=== PATIENT | male | born 1985 | race Caucasian/White ===

== ENCOUNTER 2018-01-15 07:46 | Emergency (ER) | payer BC ==
[2018-01-15 08:17] LABS: ABS Basophils 0 10^3/ul (0-0.2); ABS Eosinophils 0.1 10^3/ul (0-0.6); ABS Lymphocytes 1.4 10^3/ul (1.0-4.8); ABS Monocytes 0.3 10^3/ul (0-0.8); ABS Neutrophils 2.2 10^3/ul (1.5-7.7); ABS Nucleated RBC 0 10^3/ul; Eosinophil % 2.2 % (0-6); Hematocrit 40 % (42-52); Lymphocyte % 34.9 % (25-47); Mean Corpuscular HGB Conc 35 g/dl (31-36); Mean Corpuscular Hemoglobin 33 pg (27-31); Mean Corpuscular Volume 94 fL (80-94); Mean Platelet Volume 8.4 um3 (7.4-10.4); Nucleated Red Blood Cells % 0; Platelet Count 269 10^3/ul (150-450); Red Blood Count 4.26 10^6/ul (4.00-5.40); Red Cell Distribution Width 13 % (10.5-15); White Blood Count 3.9 10^3/ul (3.5-10.8)
[2018-01-15 08:42] LABS: EGFR Non-African American 83.9 (>60)
--- NOTE | 2018-01-15 08:52 | RAD ---
INDICATION: Chest pain COMPARISON: None TECHNIQUE: An AP portable view obtained at 0835 hours is submitted. FINDINGS: Bones/Soft Tissues: There are no acute bony findings. Cardiomediastinal: The heart is normal in size. There is a prominent right sided cardiac mogul which may represent a prominent arch. Lungs: There are no infiltrates. Pleura: There are no pleural effusions. Other: None IMPRESSION: MILDLY PROMINENT RIGHT CARDIAC MOGUL MAY REPRESENT A PROMINENT ARCH. SUGGEST NONCONTRAST CT IMAGING THE CHEST.
--- NOTE | 2018-01-15 09:19 | RAD ---
INDICATION: Evaluate ascending aorta COMPARISON: CT chest same date TECHNIQUE: Noncontrast axial source images were obtained from the thoracic inlet to the hemidiaphragms. Coronal and sagittal reconstructed images were acquired. The visualized neck to include the thyroid appear normal. Chest wall: There are no acute abnormalities of the bony thorax or chest wall. There is no supraclavicular, infraclavicular, or axillary lymphadenopathy. Lungs : There are no pulmonary parenchymal masses or infiltrates. The pulmonary interstitium appears normal. There are no endobronchial lesions. Cardiomediastinal structures: The heart is normal in size. There is no pericardial effusion. There is no evidence of aortic aneurysm or dissection. The aortic root measures approximately 2.7 cm, the ascending thoracic aorta 2.4 cm and the descending thoracic aorta approximately 1.7 cm. The pulmonary vessels appear normal. There is no mediastinal or hilar adenopathy. The esophagus appears normal. Pleura : There are no pleural-based masses or effusions. Other: There are no acute or significant CT findings of the visualized upper abdomen. IMPRESSION: THERE IS MINOR PROMINENCE OF THE AORTIC ROOT AND ASCENDING THORACIC AORTA RELATIVE TO THE DESCENDING THORACIC AORTA.. THERE IS NO FOCAL ANEURYSM. LUNGS CLEAR.
[2018-01-15 13:11] VITALS: BP 122/78
--- NOTE | 2018-01-15 15:14 | ED ---
Leobardo Lindsey Angela, scribed for Soto Trinidad MD on 01/15/18 at 0802 . HPI Chest Pain - HPI Summary HPI Summary: This pt is a 32 y/o male presenting to [facility] via EMS c/o chest pain since approximately 06:20 this morning. Pt reports this morning he was at work doing his normal morning routine when suddenly he had palpitations, characterized as rapid heart rate. He additionally states he felt fatigued, SOB, and chest pain. Pt describes chest pain as mid sternal tightness radiating to his left arm. EMS administers 324 mg aspirin and nitroglycerin x1. Currently he states he has mild mid sternal chest discomfort. Denies recent travel. No PMHx. Pt denies tobacco, alcohol, drug use. Family hx includes heart disease in father and in paternal and maternal grandfathers. Pt's paternal grandfather had VT. Pt's father follows up with Dr. Estes for extensive cardiac family hx. - History of Current Complaint Hx Obtained From: Patient Onset/Duration: Started Hours Ago, Still Present Timing: Lasting Hours Initial Severity: Moderate Current Severity: Mild Pain Intensity: 1 Pain Scale Used: 0-10 Numeric Chest Pain Location: Mid Sternal Chest Pain Radiates: Yes Chest Pain Radiates To:: Arm - left Character: Tightness Aggravating Factor(s): Nothing Alleviating Factor(s): NTG 123, EMS Tx Associated Signs and Symptoms: Positive: Chest Pain, Shortness of Breath, Palpitations, Other: - POS: fatigue. Negative: Fever, Chills - Allergy/Home Medications Allergies/Adverse Reactions: Allergies Allergy/AdvReac Type Severity Reaction Status Date / Time No Known Allergies Allergy Verified 01/15/18 07:58 Home Medications: Home Medications Ibuprofen TAB* [Motrin TAB* 400 MG] 400 mg PO Q6H PRN 01/15/18 [History Confirmed 01/15/18] PMH/Surg Hx/FS Hx/Imm Hx Endocrine/Hematology History: Denies: Hx Diabetes Cardiovascular History: Denies: Hx Hypertension Infectious Disease History: Denies: Traveled Outside the [place] in Last 30 Days - Family History Known Family History: Positive: Cardiac Disease - father has dyslipidemia. Paternal grandfather: heart disease at 32 - Social History Alcohol Use: Weekly Substance Use Type: Reports: None Smoking Status (MU): Never Smoked Tobacco Review of Systems Positive: Fatigue. Negative: Fever Positive: Palpitations, Chest Pain Positive: Shortness Of Breath Genitourinary: Negative Musculoskeletal: Negative Skin: Negative Neurological: Negative All Other Systems Reviewed And Are Negative: Yes Physical Exam - Summary Physical Exam Summary: Appearance: The patient is well-nourished in no acute distress and in no acute pain. Skin: The skin is warm and dry and skin color reflects adequate perfusion. HEENT: The head is normocephalic and atraumatic. The pupils are equal and reactive. The conjunctivae are clear and without drainage. Nares are patent and without drainage. Mouth reveals moist mucous membranes and the throat is without erythema and exudate. The external ears are intact. The ear canals are patent and without drainage. The tympanic membranes are intact. Neck: the neck is supple with full range of motion and non-tender. There are no carotid bruits. There is no neck vein distension. Respiratory: Chest is non-tender. Lungs are clear to auscultation and breath sounds are symmetrical and equal. Cardiovascular: Heart is regular rate and rhythm. There is no murmur or rub auscultated. There is no peripheral edema and pulses are symmetrical and equal. Abdomen: The abdomen is soft and non-tender. There are normal bowel sounds heard in all four quadrants and there is no organomegaly palpated. Musculoskeletal: There is no back tenderness noted. Extremities are non-tender with full range of motion. There is good capillary refill. There is no peripheral edema or calf tenderness elicited. Neurological: Patient is alert and oriented to person, place and time. The patient has symmetrical motor strength in all four extremities. Cranial nerves are grossly intact. Deep tendon reflexes are symmetrical and equal in all four extremities. Psychiatric: The patient has an appropriate affect and does not exhibit any anxiety or depression. Triage Information Reviewed: Yes Vital Signs On Initial Exam: Initial Vitals Temp Pulse Resp BP Pulse Ox 98.7 F 91 21 134/77 99 01/15/18 07:49 01/15/18 07:49 01/15/18 07:49 01/15/18 07:49 01/15/18 07:49 Vital Signs Reviewed: Yes Diagnostics - Vital Signs Vital Signs Temp Pulse Resp BP Pulse Ox 01/15/18 13:11 99.2 F 71 20 122/78 98 01/15/18 13:00 73 15 97 01/15/18 12:57 78 15 122/78 99 01/15/18 12:28 85 22 110/72 100 01/15/18 12:00 76 16 99 01/15/18 11:58 82 20 112/74 99 01/15/18 11:17 62 12 115/75 99 01/15/18 11:00 72 17 97 01/15/18 10:00 80 20 99 01/15/18 09:04 70 17 99 01/15/18 08:02 89 18 114/82 99 01/15/18 08:00 89 17 99 01/15/18 07:53 85 15 99 01/15/18 07:49 98.7 F 91 21 134/77 99 01/15/18 07:02 82 18 114/82 99 - Laboratory Lab Results: Lab Results 01/15/18 01/15/18 01/15/18 Range/Units 08:02 08:02 08:02 WBC 3.9 (3.5-10.8) 10^3/ul RBC 4.26 (4.00-5.40) 10^6/ul Hgb 14.0 (14.0-18.0) g/dl Hct 40 L (42-52) % MCV 94 (80-94) fL MCH 33 H (27-31) pg MCHC 35 (31-36) g/dl RDW 13 (10.5-15) % Plt Count 269 (150-450) 10^3/ul MPV 8.4 (7.4-10.4) um3 Neut % (Auto) 55.7 (38-83) % Lymph % (Auto) 34.9 (25-47) % [place] % (Auto) 6.5 (0-7) % Eos % (Auto) 2.2 (0-6) % Baso % (Auto) 0.7 (0-2) % Absolute Neuts (auto) 2.2 (1.5-7.7) 10^3/ul Absolute Lymphs (auto) 1.4 (1.0-4.8) 10^3/ul Absolute Monos (auto) 0.3 (0-0.8) 10^3/ul Absolute Eos (auto) 0.1 (0-0.6) 10^3/ul Absolute Basos (auto) 0 (0-0.2) 10^3/ul Absolute Nucleated RBC 0 10^3/ul Nucleated RBC % 0 D-Dimer, Quantitative (Less Than 230) ng/mL Sodium 138 (135-145) mmol/L Potassium 3.9 (3.5-5.0) mmol/L Chloride 105 (101-111) mmol/L Carbon Dioxide 26 (22-32) mmol/L Anion Gap 7 (2-11) mmol/L BUN 11 (6-24) mg/dL Creatinine 1.04 (0.67-1.17) mg/dL Est GFR ( Amer) 107.8 (>60) Est GFR (Non-Af Amer) 83.9 (>60) BUN/Creatinine Ratio 10.6 (8-20) Glucose 103 H (70-100) mg/dL Lactic Acid 2.0 (0.5-2.0) mmol/L Calcium 9.3 (8.6-10.3) mg/dL Total Bilirubin 0.50 (0.2-1.0) mg/dL AST 16 (13-39) U/L ALT 16 (7-52) U/L Alkaline Phosphatase 63 (34-104) U/L Troponin I 0.00 (<0.04) ng/mL Total Protein 6.7 (6.4-8.9) g/dL Albumin 4.2 (3.2-5.2) g/dL Globulin 2.5 (2-4) g/dL Albumin/Globulin Ratio 1.7 (1-3) 18 01/15/18 Range/Units 08:02 10:54 WBC (3.5-10.8) 10^3/ul RBC (4.00-5.40) 10^6/ul Hgb (14.0-18.0) g/dl Hct (42-52) % MCV (80-94) fL MCH (27-31) pg MCHC (31-36) g/dl RDW (10.5-15) % Plt Count (150-450) 10^3/ul MPV (7.4-10.4) um3 Neut % (Auto) (38-83) % Lymph % (Auto) (25-47) % [place] % (Auto) (0-7) % Eos % (Auto) (0-6) % Baso % (Auto) (0-2) % Absolute Neuts (auto) (1.5-7.7) 10^3/ul Absolute Lymphs (auto) (1.0-4.8) 10^3/ul Absolute Monos (auto) (0-0.8) 10^3/ul Absolute Eos (auto) (0-0.6) 10^3/ul Absolute Basos (auto) (0-0.2) 10^3/ul Absolute Nucleated RBC 10^3/ul Nucleated RBC % D-Dimer, Quantitative < 200 (Less Than 230) ng/mL Sodium (135-145) mmol/L Potassium (3.5-5.0) mmol/L Chloride (101-111) mmol/L Carbon Dioxide (22-32) mmol/L Anion Gap (2-11) mmol/L BUN (6-24) mg/dL Creatinine (0.67-1.17) mg/dL Est GFR ( Amer) (>60) Est GFR (Non-Af Amer) (>60) BUN/Creatinine Ratio (8-20) Glucose (70-100) mg/dL Lactic Acid (0.5-2.0) mmol/L Calcium (8.6-10.3) mg/dL Total Bilirubin (0.2-1.0) mg/dL AST (13-39) U/L ALT (7-52) U/L Alkaline Phosphatase (34-104) U/L Troponin I 0.00 (<0.04) ng/mL Total Protein (6.4-8.9) g/dL Albumin (3.2-5.2) g/dL Globulin (2-4) g/dL Albumin/Globulin Ratio (1-3) Result Diagrams: 01/15/18 08:02 01/15/18 08:02 Lab Statement: Any lab studies that have been ordered have been reviewed, and results considered in the medical decision making process. - Radiology Chest XR Xray Interpretation: Positive (See Comments) - IMPRESSION: Mildly prominent right cardiac mogul may represent a prominent arch. Suggest noncontrast CT imaging the chest. Dr. Trinidad has reviewed this radiology report. Radiology Interpretation Completed By: Radiologist - CT Chest CT CT Interpretation: Positive (See Comments) - IMPRESSION: There is minor prominence of the aortic root and ascending thoracic aorta relative to the descending thoracic aorta. There is no focal aneurysm. Lungs clear. Dr. Trinidad has reviewed this radiology report. CT Interpretation Completed By: Radiologist - EKG 07:41 Cardiac Rate: NL - at 89 bpm EKG Rhythm: Sinus Rhythm EKG Interpretation: Normal EKG Re-Evaluation - Re-Evaluation First Eval Re-Evaluation Time: 12:15 Comment: Reviewed lab and XR results with pt and family. He will be discharged home. Chest Pain Course/Dx - Course Course Of Treatment: Mr. Loyola presented with a chief complaint of anterior substernal chest pain which began at 620 this morning. He was working and developed a rapid heart rate and felt short of breath. He has a fairly significant family history of heart disease although his parents are in their 50s without heart disease. He is a nonsmoker. His initial EKG transmitted from the field showed a borderline sinus tachycardia with a few PSVC's. There are no acute ischemic changes. EKG here was in a normal sinus rhythm with no acute EKG changes and no ectopic beats. Chest x-ray was obtained which was read as possible mediastinal changes per the radiologist who recommended a CT scan. CT scan was read as essentially normal. Labs including a delayed troponin and d-dimer were negative. It's unclear what the source of his chest pain was although he did have some mild chest wall tenderness at the left sternal border. With the ectopic beats on the initial EKG it's possible that he had a tachycardia dysrhythmia. I recommend ibuprofen at this time and close follow-up with his PCP. - Diagnoses Provider Diagnoses: Chest pain Discharge - Sign-Out/Discharge Documenting (check all that apply): Discharge/Admit/Transfer - Discharge - Discharge Plan Condition: Stable Disposition: HOME Patient Education Materials: Chest Pain (ED) Referrals: [facility] [Outside] - 2 Days (in 2-3 days.) Additional Instructions: Recommend to take ibuprofen for the pain. Please establish a primary care provider through [facility] and follow up in 2-3 days. RETURN TO THE ED FOR ANY WORSENING SYMPTOMS. - Billing Disposition and Condition Condition: STABLE Disposition: Home The documentation as recorded by the Leobardo conti Angela accurately reflects the service I personally performed and the decisions made by me, Soto Trinidad MD.
== END 2018-01-15 13:11 | disposition home or self-care (01) ==
LOC: ED 07:46
DX: R07.89 Other chest pain (principal); R06.02 Shortness of breath; R53.83 Other fatigue; R00.2 Palpitations; Z82.49 Family history of ischemic heart disease and other diseases of the circulatory system; Z83.49 Family history of other endocrine, nutritional and metabolic diseases
CPT/HCPCS: 36415; 71045; 71250; 80053; 83605; 84484; 85025; 85379; 93005; 99283

== ENCOUNTER 2019-02-27 10:51 | Emergency (ER) | payer BC, OTHER ==
--- NOTE | 2019-02-27 11:04 | UC ---
Skin Complaint HPI - HPI Summary HPI Summary: 33 yo male presents with burn to left forearm sustained on 02/23 on a radiator while at work. He cleansed the area and states it seems to have been healing well since, but over the last 2 days has noticed some stinging pain to the area and wanted to make sure it was ok. He is unsure the date of his last tetanus vaccination. He is right handed. Denies fever, chills. - History of Current Complaint Time Seen by Provider: 02/27/19 11:01 Stated Complaint: LEFT FOREARM BURN Hx Obtained From: Patient Onset/Duration: Sudden Onset Onset Severity: Moderate Current Severity: Mild Pain Intensity: 3 Pain Scale Used: 0-10 Numeric - Allergy/Home Medications Allergies/Adverse Reactions: Allergies Allergy/AdvReac Type Severity Reaction Status Date / Time No Known Allergies Allergy Verified 02/27/19 11:05 PMH/Surg Hx/FS Hx/Imm Hx - Additional Past Medical History Additional PMH: None - Surgical History Surgical History: None - Family History Known Family History: Positive: Cardiac Disease - father has dyslipidemia. Paternal grandfather: heart disease at 32 - Social History Occupation: Employed Full-time Lives: With Family Alcohol Use: Weekly Substance Use Type: None Smoking Status (MU): Never Smoked Tobacco Review of Systems All Other Systems Reviewed And Are Negative: Yes Constitutional: Positive: Negative Skin: Positive: Other - burn left forearm Respiratory: Positive: Negative Cardiovascular: Positive: Negative Neurovascular: Positive: Negative Neurological: Positive: Negative Psychological: Positive: Negative Physical Exam - Summary Physical Exam Summary: GENERAL: NAD. WDWN. No pain distress. SKIN: LEFT FOREARM: ulnar aspect distal 1/3 with 4.5cm oval shaped second degree burn with scab present. No eschar, erythema, drainage, bleeding, or blistering. Does not involve wrist joint. CHEST: No accessory muscle use. Breathing comfortably and in no distress. CV: Pulses intact. Cap refill <2seconds MSK: FROM left wrist. NEURO: Alert. PSYCH: Age appropriate behavior. Triage Information Reviewed: Yes Vital Signs: Vital Signs: Temp Pulse Resp BP Pulse Ox 98.9 F 98 16 115/80 98 02/27/19 11:01 02/27/19 11:01 02/27/19 11:01 02/27/19 11:02/27/19 11:01 Vital Signs Reviewed: Yes Images Front/Back of Body, Lg (Nash): 1 - burn Course/Dx - Course Course Of Treatment: Healing second degree burn of left forearm. tdap was updated today. Will rx for bactroban ointment and have him keep the area covered daily - changing the dressing once a day until well healed. Be rechecked if he develops a fever, drainage, redness, or increased pain - Diagnoses Provider Diagnosis: Burn of left forearm Discharge - Sign-Out/Discharge Documenting (check all that apply): Patient Departure All imaging exams completed and their final reports reviewed: No Studies - Discharge Plan Condition: Stable Disposition: HOME Prescriptions: Mupirocin 2% OINT* [Bactroban 2 % Oint*] 1 applic TOPICAL BID #1 tube Patient Education Materials: Second Degree Burn (ED), Acute Wound Care (ED) Referrals: Anne Raymond MD [Primary Care Provider] - Additional Instructions: If you develop a fever, shortness of breath, chest pain, new or worsening symptoms - please call your PCP or go to the ED immediately. 1) Apply the ointment once or twice a day for 5 days. 2) Keep the wound covered daily - changing the dressing daily until well healed - Billing Disposition and Condition Condition: STABLE Disposition: Home - Attestation Statements Provider Attestation: I am administratively signing this document. I was available for consultation for this patient. I did not evaluate the patient, did not have a doctor/patient relationship with the patient, or participate in any medical decision making or disposition decisions unless I am specifically named in the chart as having consulted on the patient. If I have consulted on the patient, please see my own ED note on the patient encounter. Promise Das MD
[2019-02-27 11:07] VITALS: BP 115/80
[2019-02-27] MEDS ORDERED: Tetan/Diph/Pertus SYR(Tdap)* 0.5 ML SYR(BOOSTRIX) use SYR IM ONE (11:10)
== END 2019-02-27 11:25 | disposition home or self-care (01) ==
LOC: UCEAST 10:51
DX: T22.012A Burn of unspecified degree of left forearm, initial encounter (principal); T31.0 Burns involving less than 10% of body surface; X17.XXXA Contact with hot engines, machinery and tools, initial encounter; Y92.9 Unspecified place or not applicable
CPT/HCPCS: 90471; 90715; 99212; G0463

== ENCOUNTER 2019-08-23 12:26 | Emergency (ER) | payer BC ==
--- OUTSIDE RECORDS SUMMARY | 2019-08-23 12:31 | XMS REPORT | Continuity of Care Document ---
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 Onset: 01/16/2018 Family history of familial Anne Raymond M.D. Onset: 01/16/2018 hypercholesterolemia Social History Type Date Description Comments Sex Unknown ETOH Use Currently consumes 2-3 drinks/week alcohol Tobacco Use Start: Unknown Patient has never smoked Recreational Drug Use Denies Drug Use Smoking Status Reviewed: 08/14/19 Patient has never smoked Exercise Type/Frequency Exercises regularly Allergies, Adverse Reactions, Alerts Description No Known Drug Allergies Medications Active Medications SIG Qnty Indications Ordering Provider Date Omeprazole 1 by mouth every 30caps R10.13 Clyde Cordova, 12/09/[address] Ibuprofen by mouth every 4 Unknown Tablets to 6 hours as needed Immunizations Description No Information Available Vital Signs Date Vital Result Comment 08/14/2019 2:59pm Height 64.5 inches 5'4.50" Weight 125.00 lb Heart Rate 90 /min BP Systolic Sitting 107 mmHg BP Diastolic Sitting 71 mmHg O2 % BldC Oximetry 97 % BMI (Body Mass Index) 21.1 kg/m2 12/09/2018 4:16pm Height 64.5 inches 5'4.50" Weight 127.00 lb Heart Rate 96 /min BP Systolic 113 mmHg BP Diastolic 63 mmHg Body Temperature 97.2 F O2 % BldC Oximetry 97 % BMI (Body Mass Index) 21.5 kg/m2 Results Description No Information Available Procedures Description No Information Available Medical Devices Description No Information Available Encounters Description No Information Available Assessments Date Code Description Provider 08/14/2019 M79.674 Pain in right toe(s) Pinky Pa MD Plan of Treatment No Information Available Functional Status Description No Information Available Mental Status Description No Information Available Referrals Description No Information Available
--- OUTSIDE RECORDS SUMMARY | 2019-08-23 12:31 | XMS REPORT | Continuity of Care Document ---
:1985 External Reference #:[id number] Author Name Genet Nielsen N.P. (transmitted by agent of provider Bharti Mendieta) Address [address], [place] [address] Care Team Providers Name Role Phone Anne Raymond MD - Internal Care Team Information Education And Training Coordinator [phone] Medicine Problems Active Problems Provider Date Palpitations Anne Raymond M.D. Onset: 01/16/2018 Family history of familial Anne Raymond M.D. Onset: 01/16/2018 hypercholesterolemia Social History Type Date Description Comments Sex Unknown ETOH Use Currently consumes 2-3 drinks/week alcohol Tobacco Use Start: Unknown Patient has never smoked Recreational Drug Use Denies Drug Use Smoking Status Reviewed: 08/20/19 Patient has never smoked Exercise Type/Frequency Exercises regularly Allergies, Adverse Reactions, Alerts Description No Known Drug Allergies Medications Active Medications SIG Qnty Indications Ordering Provider Date Tamiflu 1 by mouth daily 10caps J06.9 Genet Nielsen, 08/20/2019 75mg Capsules for 10 days N.P. Benzonatate one by mouth 30caps J06.9 Genet Gia, 08/20/2019 200mg three times N.P. Capsules daily as needed for cough Omeprazole 1 by mouth every 30caps R10.13 Clyde Cordova, 12/09/2018 [address]D. Capsules DR Ibuprofen by mouth every 4 Unknown Tablets to 6 hours as needed History Medications Keflex 1 cap by mouth 20caps M79.674 Pinky Pa, 08/14/2019 - 500mg four times a MD 08/19/2019 Capsules day for 5 days Immunizations Description No Information Available Vital Signs Date Vital Result Comment 08/20/2019 9:24am Height 64.5 inches 5'4.50" Weight 123.50 lb Heart Rate 150 /min BP Systolic Sitting 119 mmHg BP Diastolic Sitting 82 mmHg Body Temperature 100.5 F O2 % BldC Oximetry 96 % BMI (Body Mass Index) 20.9 kg/m2 08/14/2019 2:59pm Height 64.5 inches 5'4.50" Weight 125.00 lb Heart Rate 90 /min BP Systolic Sitting 107 mmHg BP Diastolic Sitting 71 mmHg O2 % BldC Oximetry 97 % BMI (Body Mass Index) 21.1 kg/m2 Results Description No Information Available Procedures Description No Information Available Medical Devices Description No Information Available Encounters Description No Information Available Assessments Date Code Description Provider 08/20/2019 J06.9 Acute upper respiratory infection, unspecified Genet Nielsen N.P. 08/14/2019 M79.674 Pain in right toe(s) Pinky Pa MD Plan of Treatment 08/20/2019 - Genet Nielsen N.LedyJ06.9 Acute upper respiratory infection, unspecifiedNew Medication:Tamiflu 75 mg - 1 by mouth daily for 10 daysBenzonatate 200 mg - one by mouth three times daily as needed for coughNew Labs:Influenza A & B Request, Ordered: 08/20/19Comments:I am fairly certain you have the flu. I have prescribed Tamiflu for you.Take 1 tablet twice daily for 5 days. You are to stay out of work.I prescribed Benzonatate 200 mg. You may take this as needed every 8 hours for cough.I will contact you with your results of your flu swab.If your symptoms do not improve, please give the office a call. Functional Status Description No Information Available Mental Status Description No Information Available Referrals Description No Information Available
[2019-08-23 12:39] VITALS: BP 114/73
--- NOTE | 2019-08-23 12:45 | UC ---
Neck Pain HPI - HPI Summary HPI Summary: CHIEF COMPLAINT and HPI: This is a 34-year-old male who was diagnosed on with influenza and started on Tamiflu. He comes to the urgent care center because of increasing and more spasmodic cough. He also complains of mild central anterior chest discomfort with cough going to the front of his neck only. He feels tight and is slightly short of breath. He has rare wheezing. There is no other pain consistent with cardiac causes. VITAL SIGNS & SaO2 REVIEWED. Within normal limits unless noted here. NURSES NOTE REVIEWED. "since sunday - dx flu from [employer] w/ tamiflu and cough . now has violent cough and chest congestion that will not move." - History of Current Complaint Chief Complaint: UCRespiratory Stated Complaint: RESP COMPLAINT Time Seen by Provider: 08/23/19 12:41 Hx Obtained From: Patient Pain Intensity: 3 - Allergies/Home Medications Allergies/Adverse Reactions: Allergies Allergy/AdvReac Type Severity Reaction Status Date / Time No Known Allergies Allergy Verified 08/23/19 12:38 Home Medications: Home Medications Benzonatate CAP* [Tessalon 100 MG CAP*] 100 mg PO TID 08/23/19 [History Confirmed 08/23/19] Oseltamivir Phosphate [Tamiflu] 45 mg PO DAILY WITH MEAL 08/23/19 [History Confirmed 08/23/19] PMH/Surg Hx/FS Hx/Imm Hx - Additional Past Medical History Additional PMH: PAST MEDICAL HISTORY- CHRONIC and RECURRENT HEALTH PROBLEM LIST REVIEWED. Information relevant to present complaint: see HPI. VISIT HISTORY REVIEWED. Pneumonia x 2; last episode 7 years ago. MEDICATIONS & ALLERGIES REVIEWED. HYPERTENSION STATUS: None. FAMILY HISTORY: non-contributory. 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 Previously Healthy: Yes - Surgical History Surgical History: Yes Surgery Procedure, Year, and Place: dental - Family History Known Family History: Positive: Cardiac Disease - father has dyslipidemia. Paternal grandfather: heart disease at 32 - Social History Alcohol Use: Weekly Substance Use Type: None Smoking Status (MU): Never Smoked Tobacco Review of Systems All Other Systems Reviewed And Are Negative: Yes Constitutional: Positive: Fever Respiratory: Positive: Shortness Of Breath, Cough - frequent; spasmodic, Other - wheezing Cardiovascular: Positive: Negative Gastrointestinal: Positive: Negative Genitourinary: Positive: Negative Is Patient Immunocompromised?: No Physical Exam - Summary Physical Exam Summary: Appearance: The patient is well-appearing, is in no pain or distress, and is well-nourished. Afebrile; intermittent spasmodic cough. Eyes: Conjunctiva are clear. Pupils are equal and reactive to light and accommodation. Extra ocular muscle movement is intact. ENT: The hearing is grossly normal, the pharynx is normal, and the TMs are normal. There is no muffled or hoarse voice. No stridor. Neck: The neck is supple and there is no lymphadenopathy. Respiratory: The chest is non-tender to palpation and without crepitus. The lungs are clear, extended respiratory phase, and there is no respiratory distress. No wheezes, rales or rhonchi. Cardiovascular: Heart sounds reveal a regular rate and rhythm. There are no clicks, rubs or murmurs. There are no carotid bruits or thrills. Circulation is grossly intact. Abdomen: The abdomen is soft and nontender. There is no organomegaly. Bowel sounds are present and within normal limits. No point tenderness at McBurneys point. No CVA tenderness. Musculoskeletal: Strength is intact. The patient moves all extremities. Neurological: The patient is alert. Motor and sensory are examination grossly intact. Speech is normal. Psychological: The patient displays age appropriate behavior, and is conversant. GCS=15. Skin: Negative for rashes. Triage Information Reviewed: Yes Vital Signs: Initial Vital Signs Temp 98.4 F 08/23/19 12:32 Pulse 68 08/23/19 12:32 Resp 19 08/23/19 12:32 BP 114/73 08/23/19 12:32 Pulse Ox 99 08/23/19 12:32 Neck Pain Course/Dx - Course Course Of Treatment: This is a 34-year-old male who was diagnosed on 08/20/19 with influenza and started on Tamiflu. He comes to the urgent care center because of increasing and more spasmodic cough. He also complains of mild central anterior chest discomfort with cough going to the front of his neck only. He feels tight and is slightly short of breath. He has rare wheezing. There is no other pain consistent with cardiac causes. Physical exam shows extended expiratory phase. Chest x ray is negative for pneumonia. Neck is supple. Voice normal. Dx is bronchitis with bronchospasm and influenza. Given albuterol and space. Patient knows to follow up for any fever, increased chest pain, change in symptoms. - Differential Dx/Diagnosis Differential Dx/HQI/PQRI: Other - bronchospasm Provider Diagnosis: Bronchospasm with bronchitis, acute Discharge ED - Sign-Out/Discharge Documenting (check all that apply): Patient Departure All imaging exams completed and their final reports reviewed: Yes - Discharge Plan Condition: Stable Disposition: HOME Prescriptions: Albuterol HFA INHALER* [Ventolin HFA Inhaler*] 1 - 2 puff INH Q4H #1 mdi MDD 8 Inhaler, Assist Devices [Aerochamber Mv] 1 mis XX Q6HR #1 mis MDD 8 puffs Patient Education Materials: Influenza (DC), Bronchospasm (ED) Forms: *Work Release Referrals: Anne Raymond MD [Primary Care Provider] - Additional Instructions: WE DISCUSSED: YOU HAVE THE FLU and you have bronchitis from the flu. This is causing U to have some wheezing and trapping air in your lungs. As you exhale. He don't have pneumonia and your x-ray was normal. You have been taking Tamiflu. I will start her on an albuterol inhaler with a spacer 2 puffs 2-4 times a day for the next 2-5 days. Also to use a vaporizer and dip stand loader the shower and let it be down on the front of your chest. Recheck at any time for any signs of pneumonia including chest pain, shortness of breath or change in your cough. PLEASE SEEK CARE AT THE EMERGENCY DEPARTMENT IF SYMPTOMS WORSEN OR IF NEW SYMPTOMS DEVELOP. FOLLOW UP WITH YOUR PRIMARY CARE PHYSICIAN IF CONDITION CONTINUES BEYOND 3 DAYS WITHOUT IMPROVEMENT. YOUR DIAGNOSIS IS: Influenza; bronchitis with bronchospasm. I have given you a note to return to work on August 26. FOR PAIN AND/OR SLEEP: For pain: Ibuprofen (Motrin and other brand names) 400-600mg PLUS acetaminophen (Tylenol and other brand names) 500mg - 1000mg every 8 hours. - Billing Disposition and Condition Condition: STABLE Disposition: Home
== END 2019-08-23 14:07 | disposition home or self-care (01) ==
LOC: UCEAST 12:26
DX: J20.9 Acute bronchitis, unspecified (principal)
CPT/HCPCS: 71046; 99212; G0463